=== PATIENT | female | born 1980 | race Hispanic/Latino ===

== ENCOUNTER 2018-07-02 10:27 | Emergency (ER) | payer MEDICAID ==
[2018-07-02 10:47] VITALS: RESP 18; BMI 23.7
--- NOTE | 2018-07-02 12:07 | ED PDOC ---
HPI: General Adult Time Seen by Provider: 07/02/18 11:02 Chief Complaint (Nursing): ENT Problem Chief Complaint (Provider): ENT Problem History Per: Patient History/Exam Limitations: no limitations Onset/Duration Of Symptoms: Days (x3 days) Current Symptoms Are (Timing): Constant Additional Complaint(s): Sebastian Merritt is a 37 year old female with a past medical history of HTN, who presents to the emergency department complaining of right ear pain, associated with white discharge, onset x3 days. Patient states she noticed pain had a popping sound and that she has taken no medications for pain. She states she used glycerin around the ear but it did not help. Patient further reports that she had a sore throat but it has gotten better. Her son has recently been treated for ear infection. Patient denies any fever or headaches. PMD: No provider Past Medical History Reviewed: Historical Data, Nursing Documentation, Vital Signs Vital Signs: Last Vital Signs Temp 97.9 F 07/02/18 10:46 Pulse 71 07/02/18 10:46 Resp 18 07/02/18 10:46 BP 109/73 07/02/18 10:46 Pulse Ox 100 07/02/18 10:46 - Medical History PMH: HTN - Surgical History Surgical History: No Surg Hx - Family History Family History: States: Unknown Family Hx - Immunization History Hx Tetanus Toxoid Vaccination: Yes Hx Influenza Vaccination: Yes Hx Pneumococcal Vaccination: Yes - Home Medications Home Medications: Ambulatory Orders Medication Instructions Recorded Oxycodone HCl/Acetaminophen 1 tab PO Q6H PRN #15 tab 12/10/15 [Percocet 325 mg-5 mg] RX: Clindamycin [Cleocin] 300 mg PO QID #40 cap 12/10/15 Sulfamethoxazole/Trimethoprim 1 tab PO BID #14 tab 12/10/15 [Bactrim 400 mg-80 mg] Ibuprofen [Motrin] 600 mg PO Q6 PRN #20 tab 07/02/18 RX: Azithromycin [Z-Fer] 250 mg PO ASDIR #6 tab 07/02/18 - Allergies Allergies/Adverse Reactions: Allergies Allergy/AdvReac Type Severity Reaction Status Date / Time Penicillins Allergy RASH Verified 12/10/15 21:09 Review of Systems ROS Statement: Except As Marked, All Systems Reviewed And Found Negative Constitutional: Negative for: Fever ENT: Positive for: Ear Pain (right ear pain), Other Neurological: Negative for: Headache Physical Exam - Reviewed Nursing Documentation Reviewed: Yes Vital Signs Reviewed: Yes - Physical Exam Appears: Positive for: Non-toxic, No Acute Distress Head Exam: Positive for: ATRAUMATIC, NORMOCEPHALIC Eye Exam: Positive for: Normal appearance, EOMI ENT: Positive for: TM Is/Are (Right TM erythmatous and bulging). Negative for: Tonsillar Exudate, Tonsillar Swelling Cardiovascular/Chest: Positive for: Regular Rate, Rhythm Extremity: Positive for: Normal ROM Neurologic/Psych: Positive for: Alert, Oriented (x3) - ECG O2 Sat by Pulse Oximetry: 100 (RA) Pulse Ox Interpretation: Normal Medical Decision Making Medical Decision Making: Initial Time: 11:20 Initial Impression: Otitis Media of the right ear Patient is allergic to penicillin and was prescribed Motrin and azithromycin and told to follow up with ENT. Initial Plan: --Motrin 600 mg PO Scribe Attestation: Documented by Jordan Cottrell, acting as a scribe for Dexter Ramirez MD. Provider Scribe Attestation: All medical record entries made by the Scribe were at my direction and personally dictated by me. I have reviewed the chart and agree that the record accurately reflects my personal performance of the history, physical exam, medical decision making, and the department course for this patient. I have also personally directed, reviewed, and agree with the discharge instructions and disposition. Disposition - Clinical Impression Clinical Impression: Acute ear infection - Patient ED Disposition Is Patient to be Admitted: No Doctor Will See Patient In The: Office Counseled Patient/Family Regarding: Studies Performed, Diagnosis, Need For Followup - Disposition Referrals: Satinder Vacne MD [Staff Provider] - Vin Gonsalez MD [Staff Provider] - Disposition: Routine/Home Disposition Time: 11:30 Condition: GOOD Additional Instructions: SEBASTIAN MERRITT, thank you for letting us take care of you today. Your provider was Dexter Ramirez MD and you were treated for EAR PAIN. The emergency medical care you received today was directed at your acute symptoms. If you were prescribed any medication, please fill it and take as directed. It may take several days for your symptoms to resolve. Return to the Emergency Department if your symptoms worsen, do not improve, or if you have any other problems. Please contact your doctor or call one of the physicians/clinics you have been referred to that are listed on the Patient Visit Information form that is included in your discharge packet. Bring any paperwork you were given at disch arge with you along with any medications you are taking to your follow up visit. Our treatment cannot replace ongoing medical care by a primary care provider outside of the emergency department. Thank you for allowing the [facility] team to be part of your care today. If you had an X-Ray or CT scan: A Radiologist will review the ED reading if any change in treatment is needed we will contact you. If you had a blood, urine, or wound culture: It will take several days for the results, if any change in treatment is needed we will contact you. If you had an STI test: It will take 48 hours for the results. Please call after 1 week if you have not heard back. Prescriptions: RX: Azithromycin [Z-Fer] 250 mg PO ASDIR #6 tab Ibuprofen [Motrin] 600 mg PO Q6 PRN #20 tab PRN Reason: Pain, Severe (8-10) Instructions: Ear Infections (Otitis Media)
[2018-07-02 12:44] VITALS: BP 128/76; PULSE 76; TEMP 97.8
[2018-07-03 07:16] VITALS: O2SAT 100
== END 2018-07-02 12:42 | disposition home or self-care (01) ==
LOC: H.ER 10:27
DX: H66.91 Otitis media, unspecified, right ear (principal); I10 Essential (primary) hypertension; Z88.0 Allergy status to penicillin